=== PATIENT | male | born 1995 | race Caucasian/White ===

== ENCOUNTER 2020-11-13 11:59 | Emergency (ER) | payer OTHER ==
[~2020-11-13] VITALS: Ht 175.3 cm; Wt 101.7 kg
--- NOTE | 2020-11-13 12:52 | REP ---
INDICATION: R foot pain after stepping/running on rock COMPARISON: None. TECHNIQUE: AP, lateral, bilateral oblique views right foot. FINDINGS: The osseous structures and joint spaces are intact and normal. There is no evidence for acute fracture or dislocation. Surrounding soft tissues are unremarkable. No subcutaneous emphysema or radiodense foreign body. IMPRESSION: . No acute fracture or dislocation. <Electronically signed by Angus Sal > 11/13/20 [id number]
[2020-11-13 13:23] VITALS: BP 132/72
== END 2020-11-13 13:22 | disposition home or self-care (01) ==
LOC: M ED 11:59
DX: S93.601A Unspecified sprain of right foot, initial encounter (principal); S90.31XA Contusion of right foot, initial encounter; W22.8XXA Striking against or struck by other objects, initial encounter; Y92.410 Unspecified street and highway as the place of occurrence of the external cause; Y93.02 Activity, running; Y99.8 Other external cause status; Z86.16 Personal history of COVID-19